=== PATIENT | male | born 1985 | race Caucasian/White ===

== ENCOUNTER 2019-09-13 15:28 | Emergency (ER) | payer OTHER, BC ==
--- NOTE | 2019-09-13 16:30 | EDM.PDOC ---
ED HPI GENERAL MEDICAL PROBLEM - General Chief Complaint: Laceration Stated Complaint: CUT RIGHT RING FINGER Time Seen by Provider: 09/13/19 15:38 Source of Information: Reports: Patient History Limitations: Reports: No Limitations - History of Present Illness INITIAL COMMENTS - FREE TEXT/NARRATIVE: pt presents to the ER after an injury to the ring finger of his right hand. he states he was lowering a double end sewer cover to the ground when the tip of his finger was pinched between the cast iron cover and the ring. pt states he was wearing protective gloves at the time. bleeding controlled with bandaids and skin flap replaced over injury and pt states minimal pain. pt denies any other injury. last tetanus according to pt was 2-3 years ago. Associated Symptoms: Reports: No Other Symptoms Other Treatments [employer]: bandaid Right Finger-Index Pain Score (Numeric/FACES): 1 - Related Data Allergies Allergy/AdvReac Type Severity Reaction Status Date / Time No Known Allergies Allergy Verified 09/13/19 15:38 Home Meds: Home Meds NK [No Known Home Meds] 09/13/19 [History] Past Medical History - Past Health History Medical/Surgical History: Denies Medical/Surgical History - Past Surgical History Other Musculoskeletal Surgeries/Procedures:: rt arm tingling pain pinched netve x 2 yrs Social & Family History - Tobacco Use Smoking Status *Q: Never Smoker Second Hand Smoke Exposure: No - Caffeine Use Caffeine Use: Reports: Soda - Recreational Drug Use Recreational Drug Use: No ED ROS GENERAL - Review of Systems Review Of Systems: Comprehensive ROS is negative, except as noted in HPI. ED EXAM, SKIN/RASH Exam: See Below General Appearance: Alert, WD/WN, No Apparent Distress Respiratory/Chest: No Respiratory Distress, Normal Breath Sounds, No Accessory Muscle Use Cardiovascular: Normal Peripheral Pulses, Regular Rate, Rhythm Peripheral Pulses: 2+: Radial (L), Radial (R) Neurological: Alert, Oriented, Normal Cognition, Normal Gait Psychiatric: Normal Affect, Normal Mood Skin: Warm, Dry, Other (avulsion injury to distal ring finger right hand.) ED SKIN PROCEDURES - Laceration/Wound Repair Right Distal Digit - 4th (Ring) Appearance: Clean Distal NVT: Neuro & Vascular Intact Skin Prep: Chlorhexidine (Hibiciens) Exploration/Debridement/Repair: Wound Explored, Explored to Base, Minimal Debridement, No Foreign Material Found, Multiple Flaps Aligned Closed with: Dermabond Lac/Wound length In cm: 4 (semi-circular) Tetanus Status Addressed: Yes Complications: No Course - Vital Signs Last Recorded V/S: Last Vital Signs Temp 98 F 09/13/19 15:38 Pulse 69 09/13/19 15:38 Resp 18 09/13/19 15:38 BP 118/81 09/13/19 15:38 Pulse Ox 100 09/13/19 15:38 - Orders/Labs/Meds Orders: Active Orders 24 hr Category Date Time Status Hand Comp Min 3V Rt [CR] Stat Exams 09/13/19 15:53 Ordered Departure - Departure Time of Disposition: 16:30 Disposition: Home, Self-Care 01 Condition: Good Clinical Impression: Avulsion of finger tip - Discharge Information *PRESCRIPTION DRUG MONITORING PROGRAM REVIEWED*: Not Applicable *COPY OF PRESCRIPTION DRUG MONITORING REPORT IN PATIENT SHANTELL: Not Applicable Referrals: PCP,None [Primary Care Provider] - Additional Instructions: keep area as clean as possible for the next 1-2 weeks. do not apply ointments to this finger as they break down the glue. the skin on the tip of your finger may turn black and fall off. new skin will grown underneath. if you notice spreading redness or infection, see your regular doctor or return to the ER as antibiotics will be needed at that time. xray shows no break, this is good news. glue will fall off in 3-7 days on its own. Sepsis Event Note (ED) - Evaluation Sepsis Screening Result: No Definite Risk - Focused Exam Vital Signs: Vital Signs Temp Pulse Resp BP Pulse Ox 09/13/19 15:38 98 F 69 18 118/81 100 - Problem List & Annotations (1) Avulsion of finger tip SNOMED Code(s): 440303279, 267560205 Code(s): S61.209A - UNSP OPEN WOUND OF UNSP FINGER W/O DAMAGE TO NAIL, INIT Status: Acute Current Visit: Yes - Problem List Review Problem List Initiated/Reviewed/Updated: Yes - My Orders Last 24 Hours: My Active Orders 09/13/19 15:53 Hand Comp Min 3V Rt [CR] Stat - Assessment/Plan Last 24 Hours: My Active Orders 09/13/19 15:53 Hand Comp Min 3V Rt [CR] Stat
--- NOTE | 2019-09-13 19:11 | CR ---
DATE OF SERVICE: 09/13/19 CLINICAL DATA: distal ring finger injury RIGHT HAND: No priors. No acute fracture or dislocation. No lytic or blastic bone lesions. [id number] [facility]
== END 2019-09-13 16:37 | disposition home or self-care (01) ==
LOC: LB.ED 15:28
DX: S61.214A Laceration without foreign body of right ring finger without damage to nail, initial encounter (principal); W23.0XXA Caught, crushed, jammed, or pinched between moving objects, initial encounter
CPT/HCPCS: 12002; 73130-RT; 99283-25